=== PATIENT | male | born 1960 | race Asian ===

== ENCOUNTER 2019-07-20 14:02 | Day surgery (SDC) | payer OTHER ==
[2019-07-20] MEDS ORDERED: fentaNYL 250 MCG/5 ML VIAL IVP ONE (14:03)
[2019-07-20] MEDS ORDERED: MIDAZOLAM 2 MG/2 ML VIAL IVP ONE (14:03)
[2019-07-20] MEDS ORDERED: LACTATED RINGERS 1,000 ML IV ONE (14:05)
[2019-07-20 16:51] VITALS: BP 116/77
== END 2019-07-20 14:03 | disposition home or self-care (01) ==
LOC: SDS 14:02
PROVIDERS: ATTEND Surgery
PROC: 0DJD8ZZ Inspection of Lower Intestinal Tract, Via Natural or Artificial Opening Endoscopic (ICD-10-PCS; principal; 2019-07-20 15:30)
DX: Z12.11 Encounter for screening for malignant neoplasm of colon (principal)
CPT/HCPCS: 45378; J3010; J7120

== ENCOUNTER 2020-06-17 06:29 | Day surgery (SDC) | payer OTHER ==
[2020-06-17] MEDS ORDERED: LACTATED RINGERS 1,000 ML IV ONE (06:32)
[2020-06-17] MEDS ORDERED: BUPIVACAINE 0.5% PF 30 ML VIAL ONE (07:03)
[2020-06-17] MEDS ORDERED: LIDOCAINE 1%-EPI 1:100000 20 ML MDV ONE (07:03)
[2020-06-17] MEDS ORDERED: BUPIVACAINE 0.5% PF 30 ML VIAL SUBQ ONE ×2 (07:16→09:18)
[2020-06-17] MEDS ORDERED: LIDOCAINE 1%-EPI 1:100000 20 ML MDV SUBQ ONE ×2 (07:16→09:18)
--- NOTE | 2020-06-17 07:16 | ANESTHESIA ---
Pre-Anesthesia VS, & Labs - Diagnosis left inguinal hernia - Procedure left inguinal hernia Vital Signs: Temp Pulse Resp BP Pulse Ox 36 C L 59 L 12 135/102 H 98 06/17/20 06:32 06/17/20 06:32 06/17/20 06:32 06/17/20 06:32 06/17/20 06:32 Height: 6 ft Weight (kg): 77 kg Body Mass Index: 23.0 BMI Classification: Healthy weight - NPO >8 hours Home Medications and Allergies Home Medications: Ambulatory Orders No Known Home Medications 06/17/20 No Known Home Medications 06/17/20 Allergies/Adverse Reactions: Allergies Allergy/AdvReac Type Severity Reaction Status Date / Time No Known Drug Allergies Allergy Verified 07/19/19 15:26 Anes History & Medical History - Anesthetic History Anesthesia Complications: reports: No previous complications - Medical History Cardiovascular: reports: None Pulmonary: reports: None Gastrointestinal: reports: None Urinary: reports: None Musculoskeletal: reports: None Endocrine/Autoimmune: reports: None Skin: reports: None History of Cancer?: No - Surgical History General: Colonoscopy Exam General: Alert Dental: WNL Mouth Opening: Greater than 4 Fingerbreadths Mallampati classification: I Thyromental Distance: greater than 6 cm Respiratory: Lungs clear Cardiovascular: Regular rate Mental/Cognitive Status: Alert/Oriented X3 Plan Anesthesia Type: General Consent for Procedure(s) Verified and Reviewed: Yes Code Status: Attempt Resuscitation ASA classification: 1-Healthy patient Is this case an emergency?: No
[2020-06-17] MEDS ORDERED: NALOXONE 0.4 MG/ML VIAL IVP PRN (07:19)
[2020-06-17] MEDS ORDERED: MORPHINE 2 MG/ML CARPUJECT IVP PRN (07:19)
[2020-06-17] MEDS ORDERED: ePHEDrine 50 MG/ML VIAL IVP PRN (07:19)
[2020-06-17] MEDS ORDERED: fentaNYL 100 MCG/2 ML VIAL IVP PRN (07:19)
[2020-06-17] MEDS ORDERED: ONDANSETRON 4 MG/2 ML VIAL IVP PRN ×2 (07:19→09:36)
[2020-06-17] MEDS ORDERED: HYDROmorphone 0.5 MG/0.5 ML SYRINGE IVP PRN (07:19)
[2020-06-17] MEDS ORDERED: METOCLOPRAMIDE 10 MG/2 ML VIAL IVP PRN (07:19)
[2020-06-17] MEDS ORDERED: ATROPINE ABBOJECT 1 MG/10 ML SYRINGE IVP PRN (07:19)
[2020-06-17] MEDS ORDERED: LIDOCAINE-MPF 2% 5 ML VIAL ONE (07:45)
[2020-06-17] MEDS ORDERED: PROPOFOL 200 MG/20 ML VIAL IVP ONE (07:45)
[2020-06-17] MEDS ORDERED: MIDAZOLAM 2 MG/2 ML VIAL ONE (07:47)
[2020-06-17] MEDS ORDERED: fentaNYL 100 MCG/2 ML VIAL ONE (07:47)
[2020-06-17] MEDS ORDERED: LACTATED RINGERS 1,000 ML IV SCH (08:00)
[2020-06-17] MEDS ORDERED: ceFAZolin 1 GM VIAL ONE ×2 (08:19→08:40)
[2020-06-17] MEDS ORDERED: ONDANSETRON 4 MG/2 ML VIAL ONE (08:43)
[2020-06-17] MEDS ORDERED: KETOROLAC 30 MG/ML VIAL ONE (08:43)
[2020-06-17] MEDS ORDERED: DEXAMETHASONE 4 MG/ML VIAL ONE (08:44)
[2020-06-17] MEDS ORDERED: ceFAZolin 1 GM VIAL IR ONE (08:45)
[2020-06-17] MEDS ORDERED: ACETAMINOPHEN 1,000 MG/100 ML 100 ML IV ONE (08:55)
--- NOTE | 2020-06-17 09:34 | OPERATIVE REPORT ---
Operative Report - General Procedure Date: 06/17/20 Planned Procedure: Left Inguinal Hernia Repair Pre-Op Diagnosis: Left Inguinal Hernia Procedure Performed: Left Inguinal Hernia Repair Post Op Diagnosis: Large direct left inguinal hernia - Procedure Note Primary Surgeon: Aly Anesthesia Provider: CHANDANA Wilkins Anesthesia Technique: General LMA, Local, Regional block Pathology: None Estimated Blood Loss (mL): 5 Indications: Symptomatic left inguinal hernia Findings: Large direct left inguinal hernia Complications: None apparent - Other Other Information/Narrative: After obtaining informed consent, the patient is brought to the operating room and placed in the supine position on the operating table. Following successful induction of general endotracheal anesthesia, appropriate padding of all bony prominences, and placement of appropriate monitors, the abdomen was prepped and draped in the standard surgical fashion. A timeout was held per scope protocol. All elements of the surgical safety checklist were followed before, during, and after the procedure. We began the procedure by infiltrating a mixture of local anesthetics medial to the anterior superior iliac spine on the left. This was done to create an ileal inguinal nerve block. We then selected a site for an incision in the left lower quadrant just superior and lateral to the right pubic tubercle. This area was anesthetized with additional local anesthetic and an incision was created here.The incision was carried down through the skin and subcutaneous tissue to reveal the fascia of the external oblique aponeurosis. Retractor was placed and the aponeurosis was opened in direction of its fibers. The ilioinguinal nerve was immediately identified. We continued by identifying the spermatic cord and gently encircling it with a [place] drain. The hernia sac was carefully dissected free from the cord structures and was noted to be in the inferior lateral position. It consisted primarily of a large lipoma and a direct inguinal hernia. The hernia contents were placed back into the abdominal cavity. We elected to repair the hernia with a large Prolene hernia system mesh implant. This was dipped in Ancef containing solution and then deployed into the defect. The posterior leaflet was straightened and flattened in the preperitoneal space. The anterior leaflet was then nicked laterally to provide a place for the spermatic cord and then closed with a Vicryl suture. The more inferior aspect was then sewn to [place]'s ligament medially. Laterally it was tucked under the external beak aponeurosis. The wound was checked for hemostasis and irrigated with warm saline solution. It was aspirated free of all fluid and particulate matter. The extra oblique aponeurosis was then closed with a running locking Vicryl suture Rachana's fascia was closed with Vicryl suture and Monocryl stitches were placed in the skin. All sponge, needle, and instrument counts were correct at the conclusion of the case. The patient was allowed awaken from anesthesia without difficulty and taken to the postanesthesia care unit in good condition.
[2020-06-17] MEDS ORDERED: ACETAMINOPHEN 325 MG TABLET PO PRN (09:36)
[2020-06-17] MEDS ORDERED: oxyCODONE 5 MG TABLET PO PRN (09:36)
[2020-06-17] MEDS ORDERED: IBUPROFEN 600 MG TABLET PO PRN (09:36)
[2020-06-17] MEDS ORDERED: LACTATED RINGERS 800 ML IV ONE (09:40)
[2020-06-17 10:45] VITALS: BP 141/97
--- NOTE | 2020-06-17 11:27 | ANESTHESIA POST OP EVALUATION ---
Anesthesia Post Eval - Post Anesthesia Eval Vitals: Last Vital Signs Temp 36 C L 06/17/20 10:45 Pulse 65 06/17/20 10:45 Resp 12 06/17/20 10:45 BP 141/97 H 06/17/20 10:45 Pulse Ox 100 06/17/20 10:45 CV Function Including HR & BP: positive: Stable Pain Control: positive: Satisfactory Nausea & Vomiting: positive: Negative Mental Status: positive: Baseline Respiratory Status: Airway Patent Hydration Status: Satisfactory Anesthesia Complications: positive: None
== END 2020-06-17 06:30 | disposition home or self-care (01) ==
LOC: SDS 06:29
PROVIDERS: ATTEND Surgery
DX: K40.90 Unilateral inguinal hernia, without obstruction or gangrene, not specified as recurrent (principal); D17.5 Benign lipomatous neoplasm of intra-abdominal organs
CPT/HCPCS: 49505; C1781; J0131; J7120